=== PATIENT | male | born 1980 | race Caucasian/White ===

== ENCOUNTER 2021-12-12 09:31 | Emergency (ER) | payer BC, SELFPAY ==
--- NOTE | 2021-12-12 09:39 | ED.BACK ---
HPI - Back Pain/Injury General Chief Complaint: Upper Respiratory Infection Stated Complaint: Left side Pain Time Seen by Provider: 12/12/21 09:40 Source: patient and RN notes reviewed Mode of arrival: ambulatory Limitations: no limitations History of Present Illness HPI Narrative: 41-year-old male presents to the [facility] with complaints of left chest wall pain that is painful only with movement, cough and deep breathing. Patient states that his son was diagnosed with strep throat a couple of days ago and was concerned that he had strep throat and has chest. Patient is a smoker. Denies chest pain, abdominal pain. Denies fevers. No treatment prior to arrival MD elicited complaint: back pain Related Data Allergies Allergy/AdvReac Type Severity Reaction Status Date / Time No Known Allergies Allergy Verified 12/12/21 10:19 Review of Systems Review of Systems: All systems reviewed & are unremarkable except as noted in HPI and below Constitutional: Constitutional: Reports no additional constitutional complaints and Denies weakness Eyes: Eyes: Reports no additional eye complaints ENT: Reports system reviewed and no additional complaints, except as documented Cardiovascular: Cardiovascular: Reports no additional cardiovascular complaints, Denies chest pain, Denies rapid heart rate, Denies radiating jaw, neck or arm pain and Denies slow heart rate Respiratory: Respiratory: Reports as per HPI, Reports chest congestion, Reports cough, Denies dyspnea and Denies wheezing Gastrointestinal: Gastrointestinal: Reports no additional gastrointestinal complaints, Denies abdominal pain, Denies diarrhea, Denies nausea and Denies vomiting Musculoskeletal: Musculoskeletal: Reports no additional musculoskeletal complaints and Denies numbness Integumentary/Breasts: Skin/Breast: Reports system reviewed and no additional complaints, except as docu Neurologic: Reports system reviewed and no additional complaints, except as documented, Denies focal weakness, Denies numbness and Denies weakness Psychiatric: Psychiatric: Reports no additional psychiatric complaints Allergic/Immunologic: Allergic/Immunologic: Reports no additional allergic/immunologic complaints PMFSH Past Medical History Medical History (Updated 12/12/21 @ 15:36 by Liza Campbell APRN) No significant medical problems Surgical History Surgical History (Updated 12/12/21 @ 15:36 by Liza Campbell APRN) No pertinent past surgical history Social History Social History (Updated 12/12/21 @ 15:37 by Liza Campbell APRN) Smoking status: Current every day smoker Tobacco type: cigarettes Living arrangements: with family Gender identity (if verbalized by the patient): Male Comments At the time of my signature, I reviewed and agree with the nursing past medical, surgical, social, and family history. There is no relevant family history pertinent to the patient complaint. Exam Const: General: healthy appearing, no acute distress and alert Nutritional Appearance: well nourished Orientation/consciousness: patient oriented x3 Limitations: no limitations HENMT: Head: normal to inspection Ears: external ears normal, TM's normal bilaterally and EAC's normal Eyes: Pupils: Equal, round and reactive pupils present Neck: Neck: normal visual inspection, no lymphadenopathy and no meningeal signs Chest: Chest palpation & inspection: normal inspection of the chest Resp: Effort & Inspection: normal respiratory effort and no use of accessory muscles Auscultation: clear to auscultation bilaterally, no crackles, no rales, no rhonchi and no wheezes Cardio: Rate: regular rate Rhythm: regular rhythm GI: GI Palp: Yes Soft to palpation, No Tenderness to palpation present (GI) and No Guarding due to palpation present (GI) Back/Spine/Pelvis: Cervical Spine: normal cervical lordosis Thoracic/Lumbar Spine: thoracic and lumbar spine normal to inspection Skin: General skin exam:
[2021-12-12 09:43] VITALS: BP 143/93; PULSE 88; RESP 16; TEMP 36.7; O2SAT 99
== END 2021-12-12 10:33 | disposition home or self-care (01) ==
PROVIDERS: Emergency Provider Nurse Practitioner; PCP Family Medicine
DX: J40 Bronchitis, not specified as acute or chronic (principal); F17.210 Nicotine dependence, cigarettes, uncomplicated
CPT/HCPCS: 87081; 87880; 99203; G0463

== ENCOUNTER 2021-12-12 16:06 | Emergency (ER) | payer BC, SELFPAY ==
[2021-12-12] VITALS (13 sets, daily range): BP systolic 114–141; BP diastolic 70–86; PULSE 80–103; RESP 14–27; TEMP 36.8; O2SAT 94–98
--- NOTE | ~2021-12-12 | XR_ITS ---
EXAMINATION: XR chest 2V EXAM DATE: 12/12/2021 16:36 INDICATION: Left-sided chest pain since yesterday. TECHNIQUE: Frontal and lateral projections of the chest obtained and reviewed. There is no prior carol dy for comparison. FINDINGS: Low lung volume with bibasilar subsegmental airspace disease probably atelectasis. Can't t otally exclude developing pneumonia. No pneumothorax or pleural effusion. Cardiomediastinal silhouett e is normal. There are no osseous abnormalities identified. IMPRESSION: Low lung volume, bibasilar subsegmental airspace disease more consistent with atelectasi s than pneumonia. Clinical correlation. Reviewed, dictated and finalized at location B. IMPRESSION: Low lung volume, bibasilar subsegmental airspace disease more cons istent with atelectasis than pneumonia. Clinical correlation.
--- NOTE | 2021-12-12 16:07 | ECG_ITS ---
Measurements Intervals [place] Rate: 100 P: 41 MA: 155 QRS: 68 QRSD: 99 T: 50 QT: 324 QTc: 419 Interpretive Statements SINUS TACHYCARDIA BORDERLINE ECG NO PREVIOUS ECG AVAILABLE FOR COMPARISON Electronically Signed On 12-12-2021 16:59:05 CDT by Toño Childers M.D.
[2021-12-12 16:27] LABS: Basophils Absolute Auto 0.1 K/mm3 (0.0-0.1); Eosinophils Absolute Auto 0.1 K/mm3 (0-0.3); Eosinophils Percent Auto 0.8 % (0-4.4); Hematocrit 52.8 % (42.0-52.0); Hemoglobin 17.3 g/dL (14.0-18.0); Immature Granulocyte Absolute 0.03 K/mm3 (0.00-0.031); Immature Granulocyte Percent A 0.3 % (0-0.5); Lymphocytes Absolute Auto 3.03 K/mm3 (0.9-3.2); Lymphocytes Percent Auto 34.3 % (18.3-44.2); Mean Corpuscular HGB Conc 32.8 g/dl (32-36); Mean Corpuscular Hemoglobin 30.7 pg (26-34); Mean Corpuscular Volume 93.8 fl (80-100); Mean Platelet Volume 10.5 fl (7.4-10.4); Monocytes Absolute Auto 0.6 K/mm3 (0.1-0.6); Monocytes Percent Auto 6.6 % (2.6-8.5); Platelet Count Result 261 k/mm3 (150-375); Red Blood Count 5.63 M/mm3 (4.6-6.20); Red Cell Distribution Width 13.3 % (11.5-14.5); White Blood Count 8.8 K/mm3 (4.5-10.0)
--- NOTE | 2021-12-12 16:27 | ED.CHESTPAIN ---
HPI - Chest Pain General Chief Complaint: Chest Pain Stated Complaint: chest pain Time Seen by Provider: 12/12/21 16:26 Source: patient Mode of arrival: ambulatory Limitations: no limitations History of Present Illness HPI narrative: Patient is a 41-year-old male complaining of left chest wall pain, 6 out of 10, sharp, worse with coughing, deep breaths and movement that started today. Patient seen in urgent care today and was told to go to the emergency room because of his chest pain. Patient states that his son was recently diagnosed with strep and is concerned that he might have it. Patient denies any shortness of breath, abdominal pain, nausea, vomiting, diaphoresis, fever or chills. Related Data Allergies Allergy/AdvReac Type Severity Reaction Status Date / Time No Known Allergies Allergy Verified 12/12/21 10:19 Review of Systems Review of Systems: All systems reviewed & are unremarkable except as noted in HPI and below Constitutional: Constitutional: Denies body ache(s), Denies chills, Denies excessive sweating, Denies fatigue, Denies fever(s), Denies headache(s), Denies lethargy, Denies malaise, Denies weakness and Denies weight loss Eyes: Eyes: Denies blurry vision, Denies change in vision and Denies loss of vision ENT: Denies dizziness, Denies ear discharge, Denies headache(s), Denies lip swelling, Denies epistaxis, Denies nasal congestion, Denies neck pain, Denies throat swelling and Denies tongue swelling Cardiovascular: Cardiovascular: Denies diaphoresis, Denies rapid heart rate, Denies edema, Denies irregular heart rhythm, Denies lightheadedness, Denies palpitations, Denies dyspnea and Denies dyspnea on exertion Respiratory: Respiratory: Denies hemoptysis, Denies dyspnea and Denies dyspnea on exertion Gastrointestinal: Gastrointestinal: Denies abdominal pain, Denies melena, Denies hematochezia, Denies diarrhea, Denies nausea, Denies vomiting and Denies hematemesis Musculoskeletal: Musculoskeletal: Denies abnormal gait, Denies deformity, Denies joint swelling, Denies limited range of motion, Denies neck pain and Denies numbness Neurologic: Denies Abnormal speech present, Denies abnormal gait, Denies confusion, Denies dizziness, Denies headache(s), Denies focal weakness, Denies loss of vision, Denies numbness, Denies Other visual disturbances, Denies Sensory deficit (Neuro) and Denies weakness Psychiatric: Psychiatric: Denies confusion, Denies depression, Denies auditory hallucinations, Denies homicidal ideation and Denies suicidal ideation Endocrine: Endocrine: Denies cold intolerance, Denies excessive sweating, Denies fatigue, Denies heat intolerance and Denies palpitations Hematologic/Lymphatic: Hematologic/Lymphatic: Denies easy bleeding and Denies easy bruising Allergic/Immunologic: Allergic/Immunologic: Denies lip swelling, Denies throat swelling and Denies tongue swelling PMFSH Past Medical History Medical History No significant medical problems Surgical History Surgical History No pertinent past surgical history Social History Social History Smoking status: Current every day smoker Tobacco type: cigarettes Gender identity (if verbalized by the patient): Male Exam Const: General: cooperative, healthy appearing, comfortable, no acute distress, well developed, alert and awake; No confusion Orientation/consciousness: oriented to person, oriented to place, oriented to time, patient oriented x3 and No confusion Limitations: no limitations HENMT: Head: normal to inspection, normocephalic and atraumatic Ears: hearing grossly normal bilaterally, TM normal on the right and TM normal on the left General nose exam: Normal external nose present, Normal nares present and No nasal discharge present Face and sinus: normal facial exam Mouth: Yes
[2021-12-12] MEDS: ASPIRIN 81 MG CHEWABLE TABLET 324 MG PO (16:31)
[2021-12-12 16:40] LABS: Alanine Aminotransferase 36 U/L (4-50); Albumin Level 4.8 g/dL (3.5-5.1); Alkaline Phosphatase 55 U/L (38-126); Anion Gap 8 mmol/L (8-16); Aspartate Amino Transferase 30 U/L (17-59); Bilirubin,Total 0.9 mg/dL (0.2-1.3); Blood Urea Nitrogen 17 mg/dL (9-20); Calcium 9.5 mg/dL (8.4-10.2); Carbon Dioxide 25 mmol/L (22-30); Chloride 105 mmol/L (98-107); Estimated Glomerular Filt Rate > 60; Glucose 106 mg/dL (65-110); Lipase 83 U/L (23-300); Potassium 4.2 mmol/L (3.4-5.0); Sodium 138 mmol/L (137-145)
[2021-12-12 16:44] LABS: Prothrombin Time 12.3 Seconds (11.1-14.7)
[2021-12-12 16:45] LABS: Partial Thromboplastin Time 29.8 SECONDS (22.3-36.8)
[2021-12-12 16:52] LABS: Troponin I < 0.012 ng/mL (0.000-0.034)
[2021-12-12 17:26] LABS: D Dimer 0.33 ug/mL (<0.48)
--- NOTE | 2021-12-12 18:25 | PC.NURSE ---
pt asking what the delay is, it was explained to the pt that the provider wanted a three hr troponin. pt sated that he, needed to leave in 20 mins , again explained that would not be feasible as draw was still approx [address] provider informed, stated that he wanted draw, d/t pt r/f and father having cardiac history. this was told to the pt. pt again, stated desire to leave. informed the pt, this would be against medical advice. pt and this adjusto writer operator discussed preformed labs and x-rays and ekg. pt had it explained also the nature of changes in Troponin levels over time. pt maintained his stance on leaving. AMA form preferred and signed by the pt. pt angry that provider had not returned to the pt to discuss concerns, this adjusto writer operator again told provider to speak with the pt. provider and courier delivery driver informed that pt was leaving AMA. provider told the pt he had discharged him, this was after singing of AMA forms. attempted to give dc papers to the pt. pt would not sign them after signing AMA form
== END 2021-12-12 18:41 | disposition left against medical advice (07) ==
PROVIDERS: Emergency Provider Emergency Medicine; PCP Family Medicine
DX: R07.89 Other chest pain (principal); R09.1 Pleurisy; F17.210 Nicotine dependence, cigarettes, uncomplicated; R00.0 Tachycardia, unspecified
CPT/HCPCS: 36415; 71046; 80053; 83690; 84484; 85025; 85380; 85610; 85730; 87081; 87880; 93005; 99284; A9270

== ENCOUNTER 2023-09-21 14:04 | Emergency (ER) | payer OTHER, SELFPAY ==
--- NOTE | ~2023-09-21 | XR_ITS ---
XR chest 2V DATE: 09/21/2023 14:49 INDICATION: Chest congestion, cough, bloody sputum production TECHNIQUE: PA and lateral views COMPARISON: 12/12/2021 PA and lateral chest FINDINGS: There is a prominent convex opacity overlying the posterior lung bases which may be due to foramen of Bochdalek hernia or focal diaphragmatic elevation. Lung mass is not definitively excluded. CT thorax would help to more definitively evaluate this area. The lungs are moderately hyperinflated but otherwise clear of infiltrate or consolidation. No pleural effusion or pulmonary vascular congestion or pneumothorax. Heart size is normal. No hilar or mediastinal enlargement. IMPRESSION: Approximately 5.5 cm convex opacity overlying posterior lung bases on lateral view, possi lazaro foramen of Bochdalek hernia or focal diaphragm elevation. Pulmonary mass lesion is considered les s likely. CT chest would help to more definitively evaluate this area. Reviewed, dictated and finalized at location B. [employer] IMPRESSION: Approximately 5.5 cm convex opacity overlying posterior lung bases on lateral view, possibly foramen of Bochdalek hernia or focal diaphragm elevat ion. Pulmonary mass lesion is considered less likely. CT chest would help to mo re definitively evaluate this area.
[2023-09-21 14:17] VITALS: BP 142/91; PULSE 95; RESP 16; TEMP 36.3; O2SAT 96
--- NOTE | 2023-09-21 14:46 | ED.URI ---
HPI - URI/Sore Throat General Chief Complaint: Upper Respiratory Infection Stated Complaint: Sinus Source: patient and RN notes reviewed Mode of arrival: ambulatory Limitations: no limitations History of Present Illness HPI Narrative: 43 y/o male presented for c/o sore throat, cough, nasal congestion, subjective fever, malaise. Onset 4-5 days. States he coughed up blood tinged sputum today. Took unknown otc med and antibiotic at home for symptoms. Pt denies sob, wheezing, cp, palpitations, n/v/d. States throat pain is his biggest concern. MD elicited complaint: cough Related Data Home Medications Medication Instructions Recorded Confirmed ergocalciferol (vitamin D2) 1,250 1,250 mcg PO WEEKLY 09/21/23 09/21/23 mcg (50,000 unit) capsule metformin 500 mg tablet,extended 500 mg PO DIRECTED 09/21/23 09/21/23 release 24 hr Allergies Allergy/AdvReac Type Severity Reaction Status Date / Time No Known Allergies Allergy Verified 09/21/23 14:12 Review of Systems Review of Systems: CONSTITUTIONAL: Endorses malaise, chills, sweats, fever EYES: Denies visual changes, redness, or discharge ENT: Reports rhinorrhea, congestion, sore throat CARDIOVASCULAR: Denies chest pain, palpitations, edema RESPIRATORY: Reports cough, Denies dyspnea GASTROINTESTINAL: Denies abdominal pain, nausea, vomiting, diarrhea SKIN: Denies rash or itching MUSCULOSKELETAL: denies myalgia NEUROLOGIC: reports headache PMFSH Past Medical History Medical History No significant medical problems Surgical History Surgical History No pertinent past surgical history Social History Social History Smoking status: Current every day smoker Tobacco type: cigarettes Living arrangements: with family Gender identity (if verbalized by the patient): Male Exam Narrative: GENERAL: mildly Ill-appearing, nontoxic no acute distress. EYES: conjunctivae clear ENT: Mucous membranes moist. TMs pearly gonzales with dull light reflex bilaterally; no tragal tenderness. Oropharynx erythematous without lesions or exudate, no drooling, no hoarseness, no trismus, uvula midline. No tripod positioning, muffled voice, soft palate or pharyngeal wall bulging NECK: Supple. No lymphadenopathy CHEST: Clear to auscultation, breath sounds equal. No respiratory distress, speaks in full sentences. HEART: Regular rate and rhythm. No murmur heard. SKIN: Warm, dry, no rash. NEURO: Alert and oriented x3. PSYCH: Normal mood and affect Course Course Emergency Course: Patient is aware of diagnosis, understands and agrees to treatment plan. Anticipatory guidance given. Patient agrees to follow-up as directed and is aware of reasons to seek care at the emergency department. Portions of this record may have been created with voice recognition software Level of Care: Express Care Visit Vital Signs Vital signs: Vital Signs Temperature 97.3 F L 09/21/23 14:17 Pulse Rate 95 09/21/23 14:17 Respiratory Rate 16 09/21/23 14:17 Blood Pressure 142/91 H 09/21/23 14:17 Pulse Oximetry 96 09/21/23 14:17 Oxygen Delivery Room Air 09/21/23 14:17 Temperature 97.3 F L 09/21/23 14:17 Pulse Rate 95 09/21/23 14:17 Respiratory Rate 16 09/21/23 14:17 Blood Pressure 142/91 H 09/21/23 14:17 Pulse Oximetry 96 09/21/23 14:17 Oxygen Delivery Room Air 09/21/23 14:17 reviewed MDM - URI/Sore Throat MDM Narrative Medical decision making narrative: Flu, COVID, strep negative. Results reviewed with patient. Will cover for strep based on PE and CC. Results of CXR reviewed with patient. He is aware he has an elevated diaphragm and has had a CT in the past, but states he will follow-up with PCP regarding CT scan. Discussed physical exam findings. Advised supportive measures and sign
== END 2023-09-21 15:50 | disposition home or self-care (01) ==
PROVIDERS: Emergency Provider Nurse Practitioner Family; PCP Family Medicine
DX: J06.9 Acute upper respiratory infection, unspecified (principal); R91.8 Other nonspecific abnormal finding of lung field; Z20.822 Contact with and (suspected) exposure to COVID-19; F17.210 Nicotine dependence, cigarettes, uncomplicated
CPT/HCPCS: 71046; 87081; 87426; 87804; 87880; 99213; C9803; G0463